=== PATIENT | male | born 1965 | race Asian ===

== ENCOUNTER 2019-10-18 01:23 | Emergency (ER) | payer OTHER ==
[~2019-10-18] VITALS: Ht 167.6 cm; Wt 54.4 kg
[2019-10-18 01:31] VITALS: BP_SYST 174
[2019-10-18 02:16] VITALS: BP_SYST 158
== END 2019-10-18 02:15 ==
LOC: SED 01:23
DX: S61.451A Open bite of right hand, initial encounter (principal); I10 Essential (primary) hypertension; Y04.1XXA Assault by human bite, initial encounter; Y93.89 Activity, other specified; Y92.89 Other specified places as the place of occurrence of the external cause; Y99.8 Other external cause status
CPT/HCPCS: 99283